=== PATIENT | male | born 1945 ===

== ENCOUNTER 2017-08-12 06:21 | Day surgery (SDC) | payer MEDICARE ==
[2017-08-12 06:51] VITALS: O2SAT 100; BMI 27.4
--- NOTE | 2017-08-12 07:54 | CP.SDSHP ---
Same Day Surgery H & P - History Proposed Procedure: EGD Pre-Op Diagnosis: SEE NOTES - Previous Medical/Surgical History Cardiac: Hypertension Endocrine/Metabolic: Diabetes, Other - Allergies Allergies: Allergies No Known Allergies Allergy (Verified 08/07/17 07:34) - Physical Exam General Appearance: N Vital Signs: Vital Signs 08/12/17 06:33 Temperature 97.3 F L Pulse Rate 74 Respiratory 18 Rate Blood Pressure 156/87 H O2 Sat by Pulse 100 Oximetry Mental Status: Alert & Oriented x3 Neuro: WNL Heart: Other Lungs: WNL GI: WNL - {Optional Preform as Required} Breast: WNL Abdomen: Other Rectal: Other Integument: WNL : WNL Ortho: WNL - Impression Pt. Evaluated Today:Candidate for Anesthesia & Procedure: Yes - Date & Time Time: 07:53 Short Stay Discharge - Short Stay Discharge Admitting Diagnosis/Reason for Visit: DYSPEPSIA Disposition: HOME/ ROUTINE
[2017-08-12] MEDS ORDERED: Lidocaine Hydrochloride 5 ML INJ ONE (08:03)
[2017-08-12] MEDS ORDERED: Propofol 10 mg/ml Inj (20 ML) ONE (08:03)
[2017-08-12 08:22] VITALS: TEMP 97.8
[2017-08-12] MEDS ORDERED: Pantoprazole 40 mg EC Tab PO ONE (08:40)
[2017-08-12] MEDS ORDERED: Belladonna-Phenobarbital PO ONE (08:45)
[2017-08-12 08:54] VITALS: BP 176/89; PULSE 62; RESP 16
== END 2017-08-12 09:15 | disposition home or self-care (01) ==
LOC: C.ENDO 06:21
PROVIDERS: ATTEND Specialist
DX: K29.80 Duodenitis without bleeding (principal); K44.9 Diaphragmatic hernia without obstruction or gangrene; K29.00 Acute gastritis without bleeding
CPT/HCPCS: 43239; 82948; 88305; 88342; J2704